=== PATIENT | female | born 1955 | race Caucasian/White ===

== ENCOUNTER 2024-08-13 08:31 | Outpatient (REF) | payer MEDICARE, SELFPAY ==
--- NOTE | ~2024-08-13 | MM_ITS ---
EXAMINATION: BONE DENSITOMETRY CLINICAL INDICATION: Menopausal. COMPARISON: Baseline BD dated 04/18/2008. TECHNIQUE: Using a [email or web address] DXA System (software version: 13.1) manufactured by [employer], dual-energy x-ray absorptiometry was performed of the lumbar spine and left hip. The images are of good technical quality. Summary results are attached. FINDINGS: LEFT FEMUR, NECK: Current: BMD 0.797 g/cm2, Z-score -0.4, T-score -1.7, osteopenia. Baseline: BMD 0.882 g/cm2. LEFT FEMUR, TOTAL: Current: BMD 0.765 g/cm2, Z-score -0.9, T-score -1.9, osteopenia, 15.9% decrease from baseline (<5% change is not significant). Baseline: BMD 0.910 g/cm2. AP SPINE L1-L3 (excluding L4): The data of L1-L4 has been changed to exclude the L4 vertebral body, because degenerative sclerosis at this level may cause overestimation of lumbar spine density. Current: BMD 0.890 g/cm2, Z-score -1.0, T-score -2.3, osteopenia, 17.8% decrease from baseline (<5% change is not significant). Baseline: BMD 1.083 g/cm2. IDENTIFIED RISK FACTORS: Early menopause, secondary osteoporosis. HISTORY OF FRACTURE: None listed. MEDICATIONS: Calcium supplements or multivitamin, vitamin D. MM/XR DEXA axial skeleton IMPRESSION: 1. DIAGNOSIS: Osteopenia based on the lowest T-score value of -2.3 in the lumbar spine applying World Health Organization criteria. 2. 10-YEAR FRACTURE RISK PREDICTION, FRAX: Major osteoporotic fracture (clinical spine, forearm, hip or shoulder) 10.2%. Hip fracture 1.4%. 3. Treatment Recommendations: NOF guidelines recommend consideration for treatment in postmenopausal women and men age 50 and older presenting with the following: -A hip or vertebral (clinical or morphometric) fracture. -T-score less than or equal to -2.5 at the femoral neck or spine after appropriate evaluation to exclude secondary causes. -Low bone mass at the hip or spine and a 10-year fracture probability by FRAX of greater than or equal to 3% for hip fracture or greater than or equal to 20% for major osteoporotic fracture based on the [place] adapted WHO algorithm. 4. Other Recommendations: All treatment decisions require clinical judgment and consideration of individual patient factors, including patient preferences, comorbidities, previous drug use, risk factors not captured in the FRAX model (e.g. frailty, falls, vitamin D deficiency, increased bone turnover, interval significant decline in bone density) and possible under or overestimation of fracture risk by FRAX. Additional medical evaluation for secondary cause of low bone mineral density may be appropriate. FUTURE SCAN RECOMMENDATION: People with diagnosed cases of osteoporosis or at high risk for fracture should have regular bone mineral density tests. For patients eligible for Medicare, routine testing is allowed once every 2 years. The testing frequency can be increased to one year for patients who have rapidly progressing disease, those who are receiving or discontinuing medical therapy to restore bone mass, or have additional risk factors. Electronically signed by: Henrique Bean MD 08/23/2024 09:08 AM EDT
== END 2024-08-13 08:32 | disposition home or self-care (01) ==
LOC: HO.MAMMO 08:31
PROVIDERS: PCP Internal Medicine; Visit Provider Internal Medicine
DX: Z13.820 Encounter for screening for osteoporosis (principal); Z78.0 Asymptomatic menopausal state
CPT/HCPCS: 77080

== ENCOUNTER 2025-05-20 14:13 | Outpatient (AMB) | payer MEDICARE, SELFPAY ==
--- NOTE | 2025-05-20 14:14 | AM.OFFWIN_ITS ---
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 Is last menstrual period known: No Post menopausal: No Patient : No Allergies erythromycin base Allergy (Severe, Verified 05/20/25 14:23) Hives Penicillins (PCN) Allergy (Verified 05/20/25 14:23) Hives Medication List - Last Reconciled 05/20/25 by Jyoti Lawson MD hydroxyzine HCl 50 mg PO TID PRN metformin-blood sugar diagnost 500 mg ER 500 mg PO QPM minoxidil 1.5 mg PO DAILY naltrexone (Naltrex) 14 mg PO topiramate 44 mg PO DAILY valacyclovir 4,000 mg PO ONCE zolpidem 5 mg PO BEDTIME PRN 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 - Symptoms began the previous night, wit h no prior history of UTI. - The patient reports dysuria characteri zed by burning sensation during micturition. - Complains of discomfort in the lower a bdomen. - No history of high blood pressure or o ther chronic medical conditions shared during the conversation. - Denies any new back pain Problem List - Urinary Tract Infection Patient Instructions - nutritional yeast supervisor antibiotic medication from the pharmacy and start taking it with food. - Return if symptoms worsen or do not im prove. Review of Systems - General: No fever no chills - Neurological: No headaches no dizziness - Ear nose throat: No sore throat no hearing difficulty no ear pain - Cardiovascular: No syncope, no chest pain, no palpitations - Gastrointestinal: No nausea vomiting or diarrhea Physical Exam General: No acute distress HEENT: No acute findings Neck: Supple Respiratory system: Able to talk in full sentences Gastrointestinal: Lower abdomen discomfort, no back pain Extremities: No new findings TRAVEL SALES CONSULTANT: Alert awake oriented x3 motor sensory intact Skin: Normal turgor PFSH Social History Patient Tobacco Use Status: Never used Tobacco Patient : No Physical Exam Vital Signs: Last Vital Signs Temp 98.0 F 05/20/25 14:16 Pulse 96 05/20/25 14:16 BP 120/80 05/20/25 14:16 Pulse Ox 98 05/20/25 14:16 Oxygen Delivery Method Room Air 05/20/25 14:16 BMI result Body Mass Index 26.5 Results AMB Urinalysis, Automated UA Leukoctes 500 Chanda/uL Last Edit by Isaiah Day CMA on 05/20/25 14:4 5 UA Nitrite Negative Last Edit by Isaiah Day CMA on 05/20/25 14:45 UA Urobilinogen 0.2 mg/dL Last Edit by Isaiah Day CMA on 05/20/25 14 :45 UA Protein 0 mg/dL Last Edit by Isaiah Day CMA on 05/20/25 14:45 UA pH 6.0 Last Edit by Isaiah Day CMA on 05/20/25 14:45 UA Blood 200 Don/uL Last Edit by Isaiah Day CMA on 05/20/25 14:45 UA Specific [place] 1.010 Last Edit by Isaiah Day CMA on 05/20/25 14:45 UA Ketone Negative Last Edit by Isaiah Day CMA on 05/20/25 14:45 UA Bilirubin 0 mg/dL Last Edit by Isaiah Day CMA on 05/20/25 14:45 UA Glucose 0 mg/dL Last Edit by Isaiah Day CMA on 05/20/25 14:45 Results Reviewed Results Reviewed: Laboratory Last Values Urine pH (Auto) 6.0 05/20/25 14:40 Specific [place] (Auto) 1.010 05/20/25 14:40 Urine Protein (Auto) 0 mg/dL 05/20/25 14:40 Glucose (UA)(Auto) 0 mg/dL 05/20/25 14:40 Urine Ketones (Auto) Negative 05/20/25 14:40 Urine Blood (Auto) 200 Don/uL 05/20/25 14:40 Urine Nitrite (Auto) Negative 05/20/25 14:40 Urine Bilirubin (Auto) 0 mg/dL 05/20/25 14:40 Urine Urobilinogen (Auto) 0.2 mg/dL 05/20/25 14:40 Leukocyte Esterase (Auto) 500 Chanda/uL 05/20/25 14:40 Assessment & Plan Assessment & Plan (1) Acute cystitis with hematuria: Code(s): N30.01 - Acute cystitis with hematuria Plan History - The patient is a 69-year-old female presenting with symptoms indicative of a urinary tract infection. - Symptoms began the previous night, with no prior history of UTI. - The patient reports dysuria characterized by burning sensation during micturition. - Complains of discomfort in the lower abdomen. - No history of high blood pressure or other chronic medical conditions shared during the conversation. - Denies any new back pain Problem List - Urinary Tract Infection Patient Instructions - nutritional yeast supervisor antibiotic medication from the pharmacy and start taking it with food. - Return if symptoms worsen or do not improve. Orders: Orders AMB Urinalysis Automated Today Z13.9 - Encounter for screening, unspecified Urine Culture Today N30.01 - Acute cystitis with hematuria Medications: New nitrofurantoin macrocrystal must administer with a meal/food 100 mg PO BID 10 caps 0RF 5 days Coding Level of Care Code New Pt Level 3 (73261) Diagnoses Acute cystitis with hematuria N30.01
[2025-05-20 14:16] VITALS: BP 120/80; PULSE 96; TEMP 36.7; O2SAT 98; BMI 26.5
== END 2025-05-20 14:49 | disposition home or self-care (01) ==
PROVIDERS: PCP Internal Medicine; Visit Provider Internal Medicine
DX: N30.01 Acute cystitis with hematuria (principal); Z13.9 Encounter for screening, unspecified

== ENCOUNTER 2025-05-20 14:13 | Outpatient (REF) | payer MEDICARE, SELFPAY | END 2025-05-20 14:14 | disposition home or self-care (01) | LOC: HO.LNP 14:13 | PROVIDERS: PCP Internal Medicine; Visit Provider Internal Medicine | DX: N30.01 Acute cystitis with hematuria (principal); Z13.9 Encounter for screening, unspecified | CPT/HCPCS: 81003; 87086; 87088; 87186; 99202 ==